=== PATIENT | female | born 1945 | race African-American/Black ===

== ENCOUNTER 2019-04-12 13:42 | Inpatient (IN) | payer MEDICAID, MEDICARE, OTHER ==
[~2019-04-12] VITALS: Ht 162.6 cm; Wt 100.7 kg
[~2019-04-12 13:42] MED LIST: DOCUSATE SODIU100 MG PO; FERROUS SULFAT325 MG ORAL; FISH OIL CAP1000 MG PO; FLAXSEED OIL1000 M2 PO; HYDROCHLOROTH12.5 MG ORAL; LIPITOR80 MG ORAL; LISINOPRIL10 MG ORAL; NITROSTAT0.4 M1 SL; PLAVIX75 MG ORAL; TENORMIN50 MG ORAL; ULTRACET1 EA ORAL; ZYLOPRIM300 MG ORAL
--- NOTE | 2019-04-12 14:15 | Emergency Room Report ---
History of Present Illness General Chief Complaint: Abdominal Pain Source: Patient Present Illness HPI 73-year-old female presents ED for evaluation. Patient complaining of lower abdominal discomfort for the last 3 days. Describes burning urination. Pain is 5 out of 10, dull, nonradiating. Denies fevers or chills. Denies nausea or vomiting. Denies chest pain or shortness of breath. Denies flank pain. No other aggravating relieving factors. Denies any other associated symptoms Allergies: Coded Allergies: Cultivated Oat Pollen (Verified Allergy, Mild, 03/01/13) IODINE (Verified Allergy, Mild, 03/01/13) Patient History Past Medical History: DM, HTN Past Surgical History: none Pertinent Family History: none Social History: Denies: smoking, alcohol use, drug use Now: No Immunizations: UTD Reviewed Nursing Documentation: PMH: Agreed; PSxH: Agreed Nursing Documentation-PMH Hx Cardiac Problems: Yes Hx Hypertension: Yes Hx Diabetes: Yes - states that blood sugar is within borderline Hx Cancer: No Hx Gastrointestinal Problems: No Hx Neurological Problems: No Review of Systems All Other Systems: negative except mentioned in HPI Physical Exam Vital Signs Date Time Temp Pulse Resp B/P (MAP) Pulse Ox O2 Delivery O2 Flow Rate FiO2 04/12/19 13:48 100.4 73 19 172/82 (112) 96 Room Air Sp02 EP Interpretation: reviewed, normal General Appearance: no apparent distress, alert, GCS 15, non-toxic Head: normocephalic, atraumatic Eyes: bilateral eye normal inspection, bilateral eye PERRL ENT: hearing grossly normal, normal pharynx, no angioedema, normal voice Neck: full range of motion, supple/symm/no masses Respiratory: chest non-tender, lungs clear, normal breath sounds, speaking full sentences Cardiovascular #1: regular rate, rhythm, no edema Cardiovascular #2: 2+ carotid (R), 2+ carotid (L), 2+ radial (R), 2+ radial (L) , 2+ dorsalis pedis (R), 2+ dorsalis pedis (L) Gastrointestinal: normal bowel sounds, non tender, soft, non-distended, no guarding, no rebound Rectal: deferred Genitourinary: normal inspection, no CVA tenderness Musculoskeletal: back normal, gait/station normal, normal range of motion, non- tender Neurologic: alert, oriented x3, responsive, motor strength/tone normal, sensory intact, speech normal Psychiatric: judgement/insight normal, memory normal, mood/affect normal, no suicidal/homicidal ideation Reflexes: 3+ bicep (R), 3+ bicep (L), 3+ tricep (R), 3+ tricep (L), 3+ knee (R) , 3+ knee (L) Skin: normal color, no rash, warm/dry, well hydrated Lymphatic: no adenopathy Medical Decision Making Diagnostic Impression: Primary Impression: Diverticulitis ER Course Hospital Course 73-year-old female presents to ED with lower abdominal pain Differential diagnoses include: appendicitis, diverticulitis, SBO, gastroenteritis Clinical course Patient placed on stretcher. [employer]. After initial history and physical I ordered labs, IV fluids, UA, pain medication and CT scan Labs - no leukocytosis, Hb/Hct stable. electrolytes ok. UA CT abdomen and pelvis - diverticulitis Patient continues to have pain. given age, comorbidities, fever i believe patient would benefit from admission Antibiotics given. Case discussed with Dr Payne and he agreed to accept the patient to his service for further care and support I feel this is a highly complex case requiring extensive working including EKG/ Rhythm strip, Xray/CT/US, Blood/urine lab work, repeat exams while in ED, and administration of strong opiates/narcotics for pain control, admission to hospital or close patient follow up. Diagnosis - divertculitis Patient admitted to floor in serious condition Labs Test 04/12/19 14:15 White Blood Count 9.1 K/UL (4.8-10.8) Red Blood Count 4.30 M/UL (4.20-5.40) Hemoglobin 12.1 G/DL (12.0-16.0) Hematocrit 38.7 % (37.0-47.0) Mean Corpuscular Volume 90 FL (80-99) Mean Corpuscular Hemoglobin 28.0 PG (27.0-31.0) Mean Corpuscular Hemoglobin Concent 31.1 G/DL (32.0-36.0) Red Cell Distribution Width 13.3 % (11.6-14.8) Platelet Count 340 K/UL (150-450) Mean Platelet Volume 6.9 FL (6.5-10.1) Neutrophils (%) (Auto) 74.0 % (45.0-75.0) Lymphocytes (%) (Auto) 17.6 % (20.0-45.0) Monocytes (%) (Auto) 5.0 % (1.0-10.0) Eosinophils (%) (Auto) 2.4 % (0.0-3.0) Basophils (%) (Auto) 1.1 % (0.0-2.0) Urine Color Pale yellow Urine Appearance Clear Urine pH 6 (4.5-8.0) Urine Specific [place] 1.015 (1.005-1.035) Urine Protein 1+ (NEGATIVE) Urine Glucose (UA) Negative (NEGATIVE) Urine Ketones Negative (NEGATIVE) Urine Blood Negative (NEGATIVE) Urine Nitrite Negative (NEGATIVE) Urine Bilirubin Negative (NEGATIVE) Urine Urobilinogen Normal MG/DL (0.0-1.0) Urine Leukocyte Esterase 2+ (NEGATIVE) Urine RBC 0 /HPF (0 - 2) Urine WBC 2-4 /HPF (0 - 2) Urine Squamous Epithelial Cells Few /LPF (NONE/OCC) Urine Bacteria Few /HPF (NONE) Sodium Level 140 MMOL/L (136-145) Potassium Level 3.9 MMOL/L (3.5-5.1) Chloride Level 102 MMOL/L (98-107) Carbon Dioxide Level 29 MMOL/L (21-32) Anion Gap 9 mmol/L (5-15) Blood Urea Nitrogen 16 mg/dL (7-18) Creatinine 1.4 MG/DL (0.55-1.30) Estimat Glomerular Filtration Rate mL/min (>60) Glucose Level 112 MG/DL (74-106) Calcium Level 9.3 MG/DL (8.5-10.1) Total Bilirubin 0.5 MG/DL (0.2-1.0) Aspartate Amino Transf (AST/SGOT) 28 U/L (15-37) Alanine Aminotransferase (ALT/SGPT) 19 U/L (12-78) Alkaline Phosphatase 106 U/L (46-116) Total Protein 7.4 G/DL (6.4-8.2) Albumin 3.7 G/DL (3.4-5.0) Globulin 3.7 g/dL Albumin/Globulin Ratio 1.0 (1.0-2.7) Lipase 546 U/L (73-393) CT/MRI/US Diagnostic Results CT/MRI/US Diagnostic Results : Imaging Test Ordered: CT A/P Impression Acute diverticulitis involving the sigmoid: In the left lower quadrant abdomen. No abscess. Uterine fibroids. Atrophic right kidney likely nonfunctional. Small umbilical hernia containing fat Atherosclerotic vascular disease. Suggestion of a small left renal cyst. Posterior basilar scarring of the lungs with bronchiectasis. Last Vital Signs Date Time Temp Pulse Resp B/P (MAP) Pulse Ox O2 Delivery O2 Flow Rate FiO2 04/12/19 13:48 100.4 73 19 172/82 (112) 96 Room Air Status: improved Disposition: ADMITTED INPATIENT Condition: Serious Ilya Ramirez MD Apr 12, 2019 14:15
--- NOTE | 2019-04-12 14:15 | NUR ---
ED Nurse Note: pt able to give urine sample and bloood drawn and was sent to lab. ivf started.
[2019-04-12 14:20] VITALS: BP 172/82
--- NOTE | 2019-04-12 14:20 | NUR ---
ED Nurse Note: pt walked in due to lower abdominal pain. st claims that it is burning pain, pt denies putting anything on the abdomen. bp is 160/121 and stated she didnt took the bp meds because she has not been eaten for 3 days and has no bm for 3 days. pt denies vomiting. pt seen by uli. will continue to monitor.
[2019-04-12 14:40] LABS: APPEARANCE,URINE CLEAR; BASOPHILS % (AUTO) 1.1 % (0.0-2.0); BILIRUBIN, URINE NEGATIVE (NEGATIVE); COLOR,URINE PALE YELLOW; EOSINOPHILS % (AUTO) 2.4 % (0.0-3.0); GLUCOSE, URINE (UA) NEGATIVE (NEGATIVE); HEMATOCRIT 38.7 % (37.0-47.0); HEMOGLOBIN 12.1 G/DL (12.0-16.0); KETONES,URINE NEGATIVE (NEGATIVE); LEUKOCYTE ESTERASE ,URINE 2+ (NEGATIVE); LYMPHOCYTES % (AUTO) 17.6 % (20.0-45.0); MEAN CORPUSCULAR VOLUME 90 FL (80-99); NITRITE,URINE NEGATIVE (NEGATIVE); PH,URINE 6 (4.5-8.0); PLATELET COUNT 340 K/UL (150-450); PROTEIN,URINE 1+ (NEGATIVE); RED CELL DISTRIBUTION WIDTH 13.3 % (11.6-14.8); UROBILINOGEN,URINE NORMAL MG/DL (0.0-1.0); WHITE BLOOD COUNT 9.1 K/UL (4.8-10.8)
[2019-04-12 14:52] LABS: ANION GAP 9 mmol/L (5-15); BLOOD UREA NITROGEN 16 mg/dL (7-18); CALCIUM 9.3 MG/DL (8.5-10.1); CARBON DIOXIDE 29 MMOL/L (21-32); CHLORIDE 102 MMOL/L (98-107); CREATININE 1.4 MG/DL (0.55-1.30); POTASSIUM 3.9 MMOL/L (3.5-5.1); SODIUM 140 MMOL/L (136-145)
[2019-04-12 14:56] LABS: ALANINE AMINOTRANSFERASE 19 U/L (12-78); ALBUMIN 3.7 G/DL (3.4-5.0); ALKALINE PHOSPHATASE 106 U/L (46-116); ASPARTATE AMINO TRANSFERASE 28 U/L (15-37); BILIRUBIN,TOTAL 0.5 MG/DL (0.2-1.0)
--- NOTE | 2019-04-12 15:20 | NUR ---
ED Nurse Note: ermd on bedside talking with pt regarding the plan of care.
[2019-04-12] MEDS ORDERED: Isovue-300 100ml vial INJ PRN (15:30)
[2019-04-12] MEDS ORDERED: Morphine Sulfate 2mg/ml Inj(IV/IM USE ONLY) IVP ONE (15:30)
--- NOTE | 2019-04-12 15:30 | NUR ---
ED Nurse Note: pt medicated and tolerated and tolerated well. pt stated that the pain got better.
--- NOTE | 2019-04-12 15:30 | NUR ---
ED Nurse Note: pt went to ct with tech
--- NOTE | 2019-04-12 15:45 | NUR ---
ED Nurse Note: pt went back from ct with tech
--- NOTE | 2019-04-12 15:45 | NUR ---
Concepcion ortiz in EDM - 04/12/19 at 1614 by NOEL ED Nurse Note: pt went back from dialysis
--- NOTE | 2019-04-12 16:52 | Diagnostic Imaging Report ---
Indication: Abdominal pain Technique: Continuous helical transaxial imaging of the abdomen and pelvis was obtained from the lung bases to the pubic symphysis during intravenous contrast administration. Coronal 2-D reformats were also obtained. Study obtained in a Siemens sensation [address] Automatic Exposure Control was utilized. Total Dose length Product (DLP): 988.[address] Dose Index Volume (CTDIvol): 19.51 mGy Comparison: None Findings: The lung bases demonstrate mild bronchiectasis. This is associated with some peribronchial densities that likely represent scarring. The liver and spleen and gallbladder are unremarkable. The right kidney is atrophic and the left kidney enhances normally. There is no hydronephrosis. There is suggestion of a cyst in the left kidney. Moderate aortoiliac calcifications are present. The appendix is normal. Small umbilical hernia containing fat demonstrated. In the left lower quadrant abdomen there is some perisigmoid soft tissue stranding with the multiple diverticula noted. Findings consistent with acute diverticulitis. There is no abscess identified. Bowel gas pattern is nonobstructive. Calcifications and lobulation of the uterus noted consistent with fibroids. Urinary bladder is unremarkable. IMPRESSION: Acute diverticulitis involving the sigmoid: In the left lower quadrant abdomen. No abscess. Uterine fibroids. Atrophic right kidney likely nonfunctional. Small umbilical hernia containing fat Atherosclerotic vascular disease. Suggestion of a small left renal cyst. Posterior basilar scarring of the lungs with bronchiectasis. The CT scanner at [facility] is accredited by the [employer] and the scans are performed using dose optimization techniques as appropriate to a performed exam including Automatic Exposure control.
--- NOTE | 2019-04-12 17:30 | NUR ---
ED Nurse Note: uli on bedside talking with the pt regarding admission agrees witht he admission and prefers to be admitted.
[2019-04-12 17:51] VITALS: BP 150/64
[2019-04-12 19:05] VITALS: BP 126/65
--- NOTE | 2019-04-12 19:05 | NUR ---
ED Nurse Note: Report received from SARAH Hua. Pt to be admitted for diverticulitis. VSS. Pt showing no signs of acute distress. Currently awaiting bed placement. No complaint of pain at the moment. Will continue to monitor.
--- NOTE | 2019-04-12 20:07 | NUR ---
ED Nurse Note: Report given to SARAH Latif. Pt A/Ox4, VSS. Showing no signs of acute distress. All belongings with patient. Belongings list signed.
--- NOTE | 2019-04-12 20:21 | NUR ---
ED Nurse Note: Pt transferred to floor by book sorter. All belongings taken with pt. VSS. Pt showing no signs of acute distress.
[2019-04-12] MEDS ORDERED: TYLENOL WITH C1 EAC1 ORAL (21:02)
[2019-04-12] MEDS ORDERED: ISOSORBIDE MONO60 M1 PO (21:02)
[2019-04-12] MEDS ORDERED: METFORMIN HCL500 M1 ORAL (21:04)
--- NOTE | 2019-04-12 21:30 | NUR ---
NURSE NOTES: Received patient from ED. Patient AAO x 4, on room air, c/o low abd pain 7/10. IV L AC 20G intact and patent. Vital sings 97.4F, 97% O2, 77HR, 18RR. No acute distress noted at this time. All belongings lists checked. RN asked patient's wallet to keep in hospital's safe but refused. RN informed patient that hospital shall not be liable for the loss to any valuables and patient understood. Patient home meds sent to the pharmacy and reviewed. Bed locked, lowest position, alarm on, side rails up x 2. Will continue to monitor.
[2019-04-12] MEDS ORDERED: Miralax 17gm pkt ORAL PRN (22:15)
[2019-04-12] MEDS ORDERED: Nitroglycerin Subl 0.4mg tab SL PRN (22:15)
[2019-04-12] MEDS ORDERED: Piperacillin/Tazobactam 3.375 GM in NS 110 ML IVPB SCH (22:30)
[2019-04-12] MEDS: Morphine Sulfate 2mg/ml Inj(IV/IM USE ONLY) IVP PRN (22:31)
[2019-04-13] VITALS: BP 104/60
[2019-04-13 04:00] VITALS: BP 105/43
[2019-04-13] MEDS: NovoLOG Insulin Flexpen SUBQ SCH ×4 (06:30→21:00)
[2019-04-13 06:38] LABS: BASOPHILS % (AUTO) 1.1 % (0.0-2.0); EOSINOPHILS % (AUTO) 4.2 % (0.0-3.0); HEMATOCRIT 33.6 % (37.0-47.0); HEMOGLOBIN 10.5 G/DL (12.0-16.0); LYMPHOCYTES % (AUTO) 23.3 % (20.0-45.0); MEAN CORPUSCULAR VOLUME 89 FL (80-99); MONOCYTES % (AUTO) 10.2 % (1.0-10.0); NEUTROPHILS % (AUTO) 61.2 % (45.0-75.0); PLATELET COUNT 281 K/UL (150-450); RED BLOOD COUNT 3.76 M/UL (4.20-5.40); RED CELL DISTRIBUTION WIDTH 13.5 % (11.6-14.8); WHITE BLOOD COUNT 6.6 K/UL (4.8-10.8)
[2019-04-13 06:39] LABS: ALANINE AMINOTRANSFERASE 19 U/L (12-78); ALBUMIN 2.9 G/DL (3.4-5.0); ALBUMIN/GLOBULIN RATIO 0.8 (1.0-2.7); ALKALINE PHOSPHATASE 86 U/L (46-116); AMYLASE 102 U/L (25-115); ANION GAP 9 mmol/L (5-15); ASPARTATE AMINO TRANSFERASE 25 U/L (15-37); BILIRUBIN,TOTAL 0.6 MG/DL (0.2-1.0); BLOOD UREA NITROGEN 16 mg/dL (7-18); CARBON DIOXIDE 28 MMOL/L (21-32); CHLORIDE 107 MMOL/L (98-107); CREATININE 1.4 MG/DL (0.55-1.30); POTASSIUM 3.8 MMOL/L (3.5-5.1); SODIUM 144 MMOL/L (136-145)
--- NOTE | 2019-04-13 07:00 | NUR ---
HAND-OFF: Report given to SARAH Bojorquez.
--- NOTE | 2019-04-13 07:47 | NUR ---
NURSE NOTES: Received report from SARAH Renteria. Pt in bed, awake, talkative, NPO per order allowed to have ice chips, discussed plan of care and pending exams for today, pt has pain in right lower quadrant, discussed next does of pain medication, no apparent respiratory distress. Bed in lowest position, call light within reach.
[2019-04-13 08:00] VITALS: BP 113/69
[2019-04-13] MEDS: Morphine Sulfate 2mg/ml Inj(IV/IM USE ONLY) IVP PRN (08:54)
[2019-04-13] MEDS: Heparin 5000 units/ml inj SUBQ SCH ×2 (08:55→21:00)
[2019-04-13] MEDS ORDERED: Piperacillin/Tazobactam 3.375 GM in NS 110 ML IVPB SCH (09:00)
--- NOTE | 2019-04-13 11:32 | General Progress Note ---
Assessment/Plan Problem List: (1) Diverticulitis ICD Codes: K57.92 - Diverticulitis of intestine, part unspecified, without perforation or abscess without bleeding SNOMED: [id number] Assessment/Plan: abx pain control start clears needs out patient colonoscopy in 8 weeks Subjective ROS Limited/Unobtainable: Yes Allergies: Coded Allergies: Cultivated Oat Pollen (Verified Allergy, Mild, 03/01/13) IODINE (Verified Allergy, Mild, 03/01/13) Objective Last 24 Hour Vital Signs Date Time Temp Pulse Resp B/P (MAP) Pulse Ox O2 Delivery O2 Flow Rate FiO2 04/13/19 09:24 97.7 04/13/19 09:00 Room Air 04/13/19 08:53 60 113/69 04/13/19 08:00 97.7 60 12 113/69 (84) 96 04/13/19 04:00 97.2 64 14 105/43 (63) 95 04/13/19 00:00 98.4 64 14 104/60 (75) 95 04/12/19 21:08 Room Air 04/12/19 20:20 99.4 70 16 126/70 99 Room Air 04/12/19 19:05 99.7 77 18 126/65 97 Room Air 04/12/19 17:51 82 20 150/64 100 Room Air 04/12/19 14:20 73 19 Room Air 04/12/19 14:20 100.4 73 19 172/82 96 Room Air 04/12/19 13:48 100.4 73 19 172/82 (112) 96 Room Air Intake and Output 04/12/19 04/13/19 19:00 07:00 Intake Total 635 ml Balance 635 ml Intake Oral 0 ml IV Total 635 ml Laboratory Tests 04/12/19 14:15: White Blood Count 9.1, Red Blood Count 4.30, Hemoglobin 12.1, Hematocrit 38.7, Mean Corpuscular Volume 90, Mean Corpuscular Hemoglobin 28.0, Mean Corpuscular Hemoglobin Concent 31.1L, Red Cell Distribution Width 13.3, Platelet Count 340, Mean Platelet Volume 6.9, Neutrophils (%) (Auto) 74.0, Lymphocytes (%) (Auto) 17.6L, Monocytes (%) (Auto) 5.0, Eosinophils (%) (Auto) 2.4, Basophils (%) (Auto ) 1.1, Urine Color Pale yellow, Urine Appearance Clear, Urine pH 6, Urine Specific [place] 1.015, Urine Protein 1+H, Urine Glucose (UA) Negative, Urine Ketones Negative, Urine Blood Negative, Urine Nitrite Negative, Urine Bilirubin Negative, Urine Urobilinogen Normal, Urine Leukocyte Esterase 2+H, Urine RBC 0, Urine WBC 2-4, Urine Squamous Epithelial Cells Few, Urine Bacteria Few, Sodium Level 140, Potassium Level 3.9, Chloride Level 102, Carbon Dioxide Level 29, Anion Gap 9, Blood Urea Nitrogen 16, Creatinine 1.4H, Estimat Glomerular Filtration Rate , Glucose Level 112H, Calcium Level 9.3, Total Bilirubin 0.5, Aspartate Amino Transf (AST/SGOT) 28, Alanine Aminotransferase (ALT/SGPT) 19, Alkaline Phosphatase 106, Total Protein 7.4, Albumin 3.7, Globulin 3.7, Albumin/ Globulin Ratio 1.0, Lipase 546H 04/13/19 04:45: White Blood Count 6.6, Red Blood Count 3.76L, Hemoglobin 10.5L, Hematocrit 33.6L , Mean Corpuscular Volume 89, Mean Corpuscular Hemoglobin 27.9, Mean Corpuscular Hemoglobin Concent 31.2L, Red Cell Distribution Width 13.5, Platelet Count 281, Mean Platelet Volume 6.8, Neutrophils (%) (Auto) 61.2, Lymphocytes (%) (Auto) 23.3, Monocytes (%) (Auto) 10.2H, Eosinophils (%) (Auto) 4.2H, Basophils (%) (Auto) 1.1, Sodium Level 144, Potassium Level 3.8, Chloride Level 107, Carbon Dioxide Level 28, Anion Gap 9, Blood Urea Nitrogen 16, Creatinine 1.4H, Estimat Glomerular Filtration Rate , Glucose Level 107H, Calcium Level 9.0, Total Bilirubin 0.6, Aspartate Amino Transf (AST/SGOT) 25, Alanine Aminotransferase (ALT/SGPT) 19, Alkaline Phosphatase 86, Total Protein 6.4, Albumin 2.9L, Globulin 3.5, Albumin/Globulin Ratio 0.8L, Lipase 235, Prothrombin Time 10.6, Prothromb Time International Ratio 1.0, Activated Partial Thromboplast Time 30, Hemoglobin A1c 7.0H, Amylase Level 102, Thyroid Stimulating Hormone (TSH) 1.566 Height (Feet): 5 Height (Inches): 4.00 Weight (Pounds): 223 General Appearance: alert EENT: normal ENT inspection Neck: supple Cardiovascular: normal rate Respiratory/Chest: lungs clear Abdomen: normal bowel sounds, soft, tender Extremities: non-tender Cachorro Dunlap MD Apr 13, 2019 11:32
--- NOTE | 2019-04-13 11:49 | NUR ---
*-* NO ISNURANCE INFORMATION IN THE BAR UNABLE TO SEND CLINICALS *-*
[2019-04-13 12:00] VITALS: BP 127/79
--- NOTE | 2019-04-13 12:07 | Diagnostic Imaging Report ---
Indication: Abdominal pain Technique: Grayscale and duplex Doppler imaging of the abdomen performed. Comparison: None Findings: The liver is unremarkable. Doppler interrogation of the main portal vein shows patency with hepatopedal, monophasic flow. There is no biliary ductal dilatation identified. The CBD measures 5 mm. The spleen is unremarkable. Gallbladder is unremarkable. No gallstones or wall thickening identified. Sonographic Gray's sign was negative per technologist. There demonstrated part of the pancreas, aorta and IVC show no definite abnormalities. The right kidney is atrophic. There are cysts within the left kidney of varying size. There is no hydronephrosis. IMPRESSION: No acute findings identified. Left renal cysts Atrophic right kidney Please refer to the CT abdomen and pelvis report
--- NOTE | 2019-04-13 13:25 | Consultation ---
History of Present Illness General Date patient seen: Apr 13, 2019 Reason for Hospitalization: Abdominal Pain Present Illness HPI 73 year old female presented with Lower abdominal pain for 3 days. no n/v/f/c. pain 5/10 cramping lower abdominal without radiation. in ED had CT with acute diverticulitis. surgery called to evaluate. patient seen, chart reviewed, patient examined. 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 Allergies: Coded Allergies: Cultivated Oat Pollen (Verified Allergy, Mild, 03/01/13) IODINE (Verified Allergy, Mild, 03/01/13) Medication History Scheduled Allopurinol* (Zyloprim*), 300 MG ORAL DAILY, (Reported) Atenolol* (Tenormin*), 25 MG ORAL Q12HR, (Reported) Atorvastatin (Lipitor), 80 MG ORAL BEDTIME, (Reported) Clopidogrel Bisulfate* (Plavix*), 75 MG ORAL DAILY, (Reported) Isosorbide Mononitrate (Isosorbide Mononitrate Er), 60 MG PO DAILY, (Reported) Metformin Hcl* (Metformin Hcl*), 500 MG ORAL TWICE A DAY, (Reported) Nitroglycerin (Nitrostat), 0.4 MG SL PRN, (Reported) Scheduled PRN Acetaminophen/Codeine (T#4) (Tylenol With Codeine #4 Tablet*), 1 TAB ORAL Q6H PRN for For Pain, (Reported) Docusate Sodium* (Docusate Sodium*), 100 MG PO DAILY PRN for Constipation, ( Reported) Discontinued Medications Ferrous Sulfate* (Ferrous Sulfate*), 325 MG ORAL TID, (Reported) Discontinued Reason: Pt stopped taking med Fish Oil (Fish Oil 1,000 mg Capsule), 2,000 MG PO TID, (Reported) Discontinued Reason: Pt stopped taking med Flaxseed (Flaxseed Oil), 1,000 MG PO TID, (Reported) Discontinued Reason: Pt stopped taking med Hydrochlorothiazide* (Hydrochlorothiazide*), 12.5 MG ORAL DAILY, (Reported) Discontinued Reason: MD discontinued med Lisinopril* (Lisinopril*), 10 MG ORAL DAILY, (Reported) Discontinued Reason: discontinued med Tramadol/Acetaminophen (Ultracet Tablet), 1-2 EA ORAL BID-PRN, (Reported) Discontinued Reason: MD discontinued med Patient History History Provided By: Patient, Medical Record, PMD Healthcare decision maker Resuscitation status Full Code Advanced Directive on File Past Medical/Surgical History Past Medical/Surgical History: (1) UTI (urinary tract infection) (2) Diverticulitis Review of Systems Review of Symptoms General ROS: no weight loss or fever Psychological ROS: no depression or mood changes, no memory loss Ophthalmic ROS: no visual changes or eye irritation ENT ROS: no nasal congestion, hearing loss, dizziness Allergy and Immunology ROS: no allergic symptoms or urticaria Hematological and Lymphatic ROS: no swollen glands, unusual bleeding or bruising Endocrine ROS: no polyuria, polydipsia, weight changes, temperature intolerance Respiratory ROS: no cough, shortness of breath, or wheezing Cardiovascular ROS: no chest pain or dyspnea on exertion Gastrointestinal ROS: denies abdominal pain, no bright red blood in stool. Musculoskeletal ROS: no myalgias or arthralgias Neurological ROS: no TIA or stroke symptoms Dermatological ROS: no new or changing skin lesions, rashes or pruritis Physical Exam Physical Exam General appearance: alert, cooperative, no distress, appears stated age Head: Normocephalic, without obvious abnormality, atraumatic Eyes: conjunctivae/corneas clear. PERRL, EOM's intact. Fundi benign Throat: Lips, mucosa, and tongue normal. Teeth and gums normal Neck: supple, symmetrical, trachea midline, no adenopathy, thyroid: not enlarged, symmetric, no tenderness/mass/nodules, no carotid bruit and no JVD Lungs: clear to auscultation bilaterally Heart: regular rate and rhythm, S1, S2 normal, no murmur, click, rub or gallop Abdomen: soft, non-tender. Bowel sounds normal. No masses, no organomegaly Extremities: extremities normal, atraumatic, no cyanosis or edema Pulses: 2+ and symmetric Skin: Skin color, texture, turgor normal. No rashes or lesions Neurologic: Grossly normal Last 24 Hour Vital Signs Date Time Temp Pulse Resp B/P (MAP) Pulse Ox O2 Delivery O2 Flow Rate FiO2 04/13/19 12:00 97.9 68 17 127/79 (95) 94 04/13/19 09:24 97.7 04/13/19 09:00 Room Air 04/13/19 08:53 60 113/69 04/13/19 08:00 97.7 60 12 113/69 (84) 96 6/25/19 04:00 97.2 64 14 105/43 (63) 95 04/13/19 00:00 98.4 64 14 104/60 (75) 95 04/12/19 21:08 Room Air 04/12/19 20:20 99.4 70 16 126/70 99 Room Air 04/12/19 19:05 99.7 77 18 126/65 97 Room Air 04/12/19 17:51 82 20 150/64 100 Room Air 04/12/19 14:20 73 19 Room Air 04/12/19 14:20 100.4 73 19 172/82 96 Room Air 04/12/19 13:48 100.4 73 19 172/82 (112) 96 Room Air Intake and Output 04/12/19 04/13/19 19:00 07:00 Intake Total 635 ml Balance 635 ml Intake Oral 0 ml IV Total 635 ml Laboratory Tests Test 04/12/19 14:15 04/13/19 04:45 White Blood Count 9.1 K/UL (4.8-10.8) 6.6 K/UL (4.8-10.8) Red Blood Count 4.30 M/UL (4.20-5.40) 3.76 M/UL (4.20-5.40) L Hemoglobin 12.1 G/DL (12.0-16.0) 10.5 G/DL (12.0-16.0) L Hematocrit 38.7 % (37.0-47.0) 33.6 % (37.0-47.0) L Mean Corpuscular Volume 90 FL (80-99) 89 FL (80-99) Mean Corpuscular Hemoglobin 28.0 PG (27.0-31.0) 27.9 PG (27.0-31.0) Mean Corpuscular Hemoglobin Concent 31.1 G/DL (32.0-36.0) L 31.2 G/DL (32.0-36.0) L Red Cell Distribution Width 13.3 % (11.6-14.8) 13.5 % (11.6-14.8) Platelet Count 340 K/UL (150-450) 281 K/UL (150-450) Mean Platelet Volume 6.9 FL (6.5-10.1) 6.8 FL (6.5-10.1) Neutrophils (%) (Auto) 74.0 % (45.0-75.0) 61.2 % (45.0-75.0) Lymphocytes (%) (Auto) 17.6 % (20.0-45.0) L 23.3 % (20.0-45.0) Monocytes (%) (Auto) 5.0 % (1.0-10.0) 10.2 % (1.0-10.0) H Eosinophils (%) (Auto) 2.4 % (0.0-3.0) 4.2 % (0.0-3.0) H Basophils (%) (Auto) 1.1 % (0.0-2.0) 1.1 % (0.0-2.0) Urine Color Pale yellow Urine Appearance Clear Urine pH 6 (4.5-8.0) Urine Specific [place] 1.015 (1.005-1.035) Urine Protein 1+ (NEGATIVE) H Urine Glucose (UA) Negative (NEGATIVE) Urine Ketones Negative (NEGATIVE) Urine Blood Negative (NEGATIVE) Urine Nitrite Negative (NEGATIVE) Urine Bilirubin Negative (NEGATIVE) Urine Urobilinogen Normal MG/DL (0.0-1.0) Urine Leukocyte Esterase 2+ (NEGATIVE) H Urine RBC 0 /HPF (0 - 2) Urine WBC 2-4 /HPF (0 - 2) Urine Squamous Epithelial Cells Few /LPF (NONE/OCC) Urine Bacteria Few /HPF (NONE) Sodium Level 140 MMOL/L (136-145) 144 MMOL/L (136-145) Potassium Level 3.9 MMOL/L (3.5-5.1) 3.8 MMOL/L (3.5-5.1) Chloride Level 102 MMOL/L (98-107) 107 MMOL/L (98-107) Carbon Dioxide Level 29 MMOL/L (21-32) 28 MMOL/L (21-32) Anion Gap 9 mmol/L (5-15) 9 mmol/L (5-15) Blood Urea Nitrogen 16 mg/dL (7-18) 16 mg/dL (7-18) Creatinine 1.4 MG/DL (0.55-1.30) H 1.4 MG/DL (0.55-1.30) H Estimat Glomerular Filtration Rate mL/min (>60) mL/min (>60) Glucose Level 112 MG/DL (74-106) H 107 MG/DL (74-106) H Calcium Level 9.3 MG/DL (8.5-10.1) 9.0 MG/DL (8.5-10.1) Total Bilirubin 0.5 MG/DL (0.2-1.0) 0.6 MG/DL (0.2-1.0) Aspartate Amino Transf (AST/SGOT) 28 U/L (15-37) 25 U/L (15-37) Alanine Aminotransferase (ALT/SGPT) 19 U/L (12-78) 19 U/L (12-78) Alkaline Phosphatase 106 U/L (46-116) 86 U/L (46-116) Total Protein 7.4 G/DL (6.4-8.2) 6.4 G/DL (6.4-8.2) Albumin 3.7 G/DL (3.4-5.0) 2.9 G/DL (3.4-5.0) L Globulin 3.7 g/dL 3.5 g/dL Albumin/Globulin Ratio 1.0 (1.0-2.7) 0.8 (1.0-2.7) L Lipase 546 U/L (73-393) H 235 U/L (73-393) Prothrombin Time 10.6 SEC (9.30-11.50) Prothromb Time International Ratio 1.0 (0.9-1.1) Activated Partial Thromboplast Time 30 SEC (23-33) Hemoglobin A1c 7.0 % (4.3-6.0) H Amylase Level 102 U/L (25-115) Thyroid Stimulating Hormone (TSH) 1.566 uiU/mL (0.358-3.740) Height (Feet): 5 Height (Inches): 4.00 Weight (Pounds): 223 Medications Current Medications Medications (Trade) Dose Ordered Sig/Cecilio Route PRN Reason Start Time Stop Time Status Last Admin Dose Admin Acetaminophen (Tylenol) 650 mg Q4H PRN ORAL fever 04/12/19 22:15 05/12/19 22:14 Allopurinol (Allopurinol) 300 mg DAILY ORAL 04/13/19 09:00 05/13/19 08:59 04/13/19 08:52 Atenolol (Tenormin) 25 mg Q12HR ORAL 04/13/19 09:00 05/13/19 08:59 04/13/19 08:53 Clopidogrel Bisulfate (Plavix) 75 mg DAILY ORAL 04/13/19 09:00 05/13/19 08:59 04/13/19 08:52 Dextrose (Dextrose 50%) 25 ml Q30M PRN IV Hypoglycemia 04/12/19 22:15 05/12/19 22:14 Diphenhydramine HCl (Benadryl) 25 mg Q6H PRN ORAL Itching/Pruritis 04/12/19 22:15 05/12/19 22:14 Heparin Sodium (Porcine) (Heparin 5000 units/ml) 5,000 units EVERY 12 HOURS SUBQ 04/13/19 09:00 05/13/19 08:59 Insulin Aspart (NovoLOG) BEFORE MEALS AND HS SUBQ 04/13/19 06:30 05/13/19 06:29 Morphine Sulfate (Morphine Sulfate) 2 mg Q4H PRN IVP severe Pain (Pain Scale 7-10) 04/12/19 22:15 04/19/19 22:14 04/13/19 08:54 Nitroglycerin (Ntg) 0.4 mg Q5M X 3 DOSES PRN SL Prn Chest Pain 04/12/19 22:15 05/12/19 22:14 Ondansetron HCl (Zofran) 4 mg Q6H PRN IVP Nausea & Vomiting 04/12/19 22:15 05/12/19 22:14 Piperacillin Sod/ Tazobactam Sod 3.375 gm/Sodium Chloride 110 ml @ 220 mls/hr Q8H IVPB 04/13/19 09:00 04/20/19 08:59 04/13/19 08:56 Polyethylene Glycol (Miralax) 17 gm HSPRN PRN ORAL Constipation 04/12/19 22:15 05/12/19 22:14 Sodium Chloride 1,000 ml @ 50 mls/hr Q20H IV 04/12/19 22:05 05/12/19 22:04 04/12/19 23:12 Temazepam (Restoril) 15 mg HSPRN PRN ORAL Insomnia 04/12/19 22:15 04/19/19 22:14 Assessment/Plan Problem List: (1) Keloid scar of skin Assessment & Plan: 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 CT with acute diverticulitis. afebrile, HD stable, labs okay Acute diverticulitis involving the sigmoid: In the left lower quadrant abdomen. No abscess. Uterine fibroids. Atrophic right kidney likely nonfunctional. Small umbilical hernia containing fat Atherosclerotic vascular disease. Suggestion of a small left renal cyst. Posterior basilar scarring of the lungs with bronchiectasis. exam benign today start clear liquids cont abx will follow with exams. thank you ICD Codes: K57.92 - Diverticulitis of intestine, part unspecified, without perforation or abscess without bleeding SNOMED: 169336516 (3) UTI (urinary tract infection) ICD Codes: N39.0 - Urinary tract infection, site not specified SNOMED: 40380326 Shawn Zuniga Apr 13, 2019 13:25
--- NOTE | 2019-04-13 13:38 | Consultation ---
History of Present Illness General Chief Complaint: Abdominal Pain Present Illness HPI 73-year-old female with hx of DM, HTN, presented to ED for evaluation of lower abdominal discomfort for the last 3 days. Describes burning urination. Pain is 5 out of 10, dull, nonradiating. Denies fevers or chills. Denies nausea or vomiting. Denies chest pain or shortness of breath. She had a CT of abdomen in ER showing acute diverticulitis and is admitted for further treatment. CT also showed a right atrophic kidney. Allergies: Coded Allergies: Cultivated Oat Pollen (Verified Allergy, Mild, 03/01/13) IODINE (Verified Allergy, Mild, 03/01/13) Medication History Scheduled Allopurinol* (Zyloprim*), 300 MG ORAL DAILY, (Reported) Atenolol* (Tenormin*), 25 MG ORAL Q12HR, (Reported) Atorvastatin (Lipitor), 80 MG ORAL BEDTIME, (Reported) Clopidogrel Bisulfate* (Plavix*), 75 MG ORAL DAILY, (Reported) Isosorbide Mononitrate (Isosorbide Mononitrate Er), 60 MG PO DAILY, (Reported) Metformin Hcl* (Metformin Hcl*), 500 MG ORAL TWICE A DAY, (Reported) Nitroglycerin (Nitrostat), 0.4 MG SL PRN, (Reported) Scheduled PRN Acetaminophen/Codeine (T#4) (Tylenol With Codeine #4 Tablet*), 1 TAB ORAL Q6H PRN for For Pain, (Reported) Docusate Sodium* (Docusate Sodium*), 100 MG PO DAILY PRN for Constipation, ( Reported) Discontinued Medications Ferrous Sulfate* (Ferrous Sulfate*), 325 MG ORAL TID, (Reported) Discontinued Reason: Pt stopped taking med Fish Oil (Fish Oil 1,000 mg Capsule), 2,000 MG PO TID, (Reported) Discontinued Reason: Pt stopped taking med Flaxseed (Flaxseed Oil), 1,000 MG PO TID, (Reported) Discontinued Reason: Pt stopped taking med Hydrochlorothiazide* (Hydrochlorothiazide*), 12.5 MG ORAL DAILY, (Reported) Discontinued Reason: MD discontinued med Lisinopril* (Lisinopril*), 10 MG ORAL DAILY, (Reported) Discontinued Reason: MD discontinued med Tramadol/Acetaminophen (Ultracet Tablet), 1-2 EA ORAL BID-PRN, (Reported) Discontinued Reason: discontinued med Patient History Healthcare decision maker Resuscitation status Full Code Advanced Directive on File Past Medical/Surgical History Past Medical/Surgical History: (1) CAD (coronary artery disease) (2) Diabetes mellitus Review of Systems All Other Systems: negative except mentioned in HPI Physical Exam General Appearance: WD/WN, alert Lines, tubes and drains: peripheral, central line HEENT: normocephalic, atraumatic Neck: non-tender, normal alignment Respiratory/Chest: chest wall non-tender, no respiratory distress Cardiovascular/Chest: normal peripheral pulses, normal rate Abdomen: normal bowel sounds, soft Genitourinary/Rectal: normal genital exam Extremities: normal range of motion, non-tender Skin Exam: normal pigmentation Last 24 Hour Vital Signs Date Time Temp Pulse Resp B/P (MAP) Pulse Ox O2 Delivery O2 Flow Rate FiO2 04/13/19 12:00 97.9 68 17 127/79 (95) 94 04/13/19 09:24 97.7 04/13/19 09:00 Room Air 04/13/19 08:53 60 113/69 04/13/19 08:00 97.7 60 12 113/69 (84) 96 04/13/19 04:00 97.2 64 14 105/43 (63) 95 04/13/19 00:00 98.4 64 14 104/60 (75) 95 04/12/19 21:08 Room Air 04/12/19 20:20 99.4 70 16 126/70 99 Room Air 04/12/19 19:05 99.7 77 18 126/65 97 Room Air 04/12/19 17:51 82 20 150/64 100 Room Air 04/12/19 14:20 73 19 Room Air 04/12/19 14:20 100.4 73 19 172/82 96 Room Air 04/12/19 13:48 100.4 73 19 172/82 (112) 96 Room Air Intake and Output 04/12/19 04/13/19 19:00 07:00 Intake Total 635 ml Balance 635 ml Intake Oral 0 ml IV Total 635 ml Laboratory Tests Test 04/12/19 14:15 04/13/19 04:45 White Blood Count 9.1 K/UL (4.8-10.8) 6.6 K/UL (4.8-10.8) Red Blood Count 4.30 M/UL (4.20-5.40) 3.76 M/UL (4.20-5.40) L Hemoglobin 12.1 G/DL (12.0-16.0) 10.5 G/DL (12.0-16.0) L Hematocrit 38.7 % (37.0-47.0) 33.6 % (37.0-47.0) L Mean Corpuscular Volume 90 FL (80-99) 89 FL (80-99) Mean Corpuscular Hemoglobin 28.0 PG (27.0-31.0) 27.9 PG (27.0-31.0) Mean Corpuscular Hemoglobin Concent 31.1 G/DL (32.0-36.0) L 31.2 G/DL (32.0-36.0) L Red Cell Distribution Width 13.3 % (11.6-14.8) 13.5 % (11.6-14.8) Platelet Count 340 K/UL (150-450) 281 K/UL (150-450) Mean Platelet Volume 6.9 FL (6.5-10.1) 6.8 FL (6.5-10.1) Neutrophils (%) (Auto) 74.0 % (45.0-75.0) 61.2 % (45.0-75.0) Lymphocytes (%) (Auto) 17.6 % (20.0-45.0) L 23.3 % (20.0-45.0) Monocytes (%) (Auto) 5.0 % (1.0-10.0) 10.2 % (1.0-10.0) H Eosinophils (%) (Auto) 2.4 % (0.0-3.0) 4.2 % (0.0-3.0) H Basophils (%) (Auto) 1.1 % (0.0-2.0) 1.1 % (0.0-2.0) Urine Color Pale yellow Urine Appearance Clear Urine pH 6 (4.5-8.0) Urine Specific [place] 1.015 (1.005-1.035) Urine Protein 1+ (NEGATIVE) H Urine Glucose (UA) Negative (NEGATIVE) Urine Ketones Negative (NEGATIVE) Urine Blood Negative (NEGATIVE) Urine Nitrite Negative (NEGATIVE) Urine Bilirubin Negative (NEGATIVE) Urine Urobilinogen Normal MG/DL (0.0-1.0) Urine Leukocyte Esterase 2+ (NEGATIVE) H Urine RBC 0 /HPF (0 - 2) Urine WBC 2-4 /HPF (0 - 2) Urine Squamous Epithelial Cells Few /LPF (NONE/OCC) Urine Bacteria Few /HPF (NONE) Sodium Level 140 MMOL/L (136-145) 144 MMOL/L (136-145) Potassium Level 3.9 MMOL/L (3.5-5.1) 3.8 MMOL/L (3.5-5.1) Chloride Level 102 MMOL/L (98-107) 107 MMOL/L (98-107) Carbon Dioxide Level 29 MMOL/L (21-32) 28 MMOL/L (21-32) Anion Gap 9 mmol/L (5-15) 9 mmol/L (5-15) Blood Urea Nitrogen 16 mg/dL (7-18) 16 mg/dL (7-18) Creatinine 1.4 MG/DL (0.55-1.30) H 1.4 MG/DL (0.55-1.30) H Estimat Glomerular Filtration Rate mL/min (>60) mL/min (>60) Glucose Level 112 MG/DL (74-106) H 107 MG/DL (74-106) H Calcium Level 9.3 MG/DL (8.5-10.1) 9.0 MG/DL (8.5-10.1) Total Bilirubin 0.5 MG/DL (0.2-1.0) 0.6 MG/DL (0.2-1.0) Aspartate Amino Transf (AST/SGOT) 28 U/L (15-37) 25 U/L (15-37) Alanine Aminotransferase (ALT/SGPT) 19 U/L (12-78) 19 U/L (12-78) Alkaline Phosphatase 106 U/L (46-116) 86 U/L (46-116) Total Protein 7.4 G/DL (6.4-8.2) 6.4 G/DL (6.4-8.2) Albumin 3.7 G/DL (3.4-5.0) 2.9 G/DL (3.4-5.0) L Globulin 3.7 g/dL 3.5 g/dL Albumin/Globulin Ratio 1.0 (1.0-2.7) 0.8 (1.0-2.7) L Lipase 546 U/L (73-393) H 235 U/L (73-393) Prothrombin Time 10.6 SEC (9.30-11.50) Prothromb Time International Ratio 1.0 (0.9-1.1) Activated Partial Thromboplast Time 30 SEC (23-33) Hemoglobin A1c 7.0 % (4.3-6.0) H Amylase Level 102 U/L (25-115) Thyroid Stimulating Hormone (TSH) 1.566 uiU/mL (0.358-3.740) Height (Feet): 5 Height (Inches): 4.00 Weight (Pounds): 223 Medications Current Medications Medications (Trade) Dose Ordered Sig/[place]ec[place] Route PRN Reason Start Time Stop Time Status Last Admin Dose Admin Acetaminophen (Tylenol) 650 mg Q4H PRN ORAL fever 04/12/19 22:15 05/12/19 22:14 Allopurinol (Allopurinol) 300 mg DAILY ORAL 04/13/19 09:00 05/13/19 08:59 04/13/19 08:52 Atenolol (Tenormin) 25 mg Q12HR ORAL 04/13/19 09:00 05/13/19 08:59 04/13/19 08:53 Clopidogrel Bisulfate (Plavix) 75 mg DAILY ORAL 04/13/19 09:00 05/13/19 08:59 04/13/19 08:52 Dextrose (Dextrose 50%) 25 ml Q30M PRN IV Hypoglycemia 04/12/19 22:15 05/12/19 22:14 Diphenhydramine HCl (Benadryl) 25 mg Q6H PRN ORAL Itching/Pruritis 04/12/19 22:15 05/12/19 22:14 Heparin Sodium (Porcine) (Heparin 5000 units/ml) 5,000 units EVERY 12 HOURS SUBQ 04/13/19 09:00 05/13/19 08:59 Insulin Aspart (NovoLOG) BEFORE MEALS AND HS SUBQ 04/13/19 06:30 05/13/19 06:29 Morphine Sulfate (Morphine Sulfate) 2 mg Q4H PRN IVP severe Pain (Pain Scale 7-10) 6/24/19 22:15 04/19/19 22:14 04/13/19 08:54 Nitroglycerin (Ntg) 0.4 mg Q5M X 3 DOSES PRN SL Prn Chest Pain 04/12/19 22:15 05/12/19 22:14 Ondansetron HCl (Zofran) 4 mg Q6H PRN IVP Nausea & Vomiting 04/12/19 22:15 05/12/19 22:14 Piperacillin Sod/ Tazobactam Sod 3.375 gm/Sodium Chloride 110 ml @ 220 mls/hr Q8H IVPB 04/13/19 09:00 04/20/19 08:59 04/13/19 08:56 Polyethylene Glycol (Miralax) 17 gm HSPRN PRN ORAL Constipation 04/12/19 22:15 05/12/19 22:14 Sodium Chloride 1,000 ml @ 50 mls/hr Q20H IV 04/12/19 22:05 05/12/19 22:04 04/12/19 23:12 Temazepam (Restoril) 15 mg HSPRN PRN ORAL Insomnia 04/12/19 22:15 04/19/19 22:14 Assessment/Plan Problem List: (1) Diverticulitis ICD Codes: K57.92 - Diverticulitis of intestine, part unspecified, without perforation or abscess without bleeding SNOMED: 265620345 (2) Chronic renal insufficiency ICD Codes: N18.9 - Chronic kidney disease, unspecified SNOMED: 599137060 (3) CAD (coronary artery disease) ICD Codes: I25.10 - Atherosclerotic heart disease of [place] coronary artery without angina pectoris SNOMED: 93385651 (4) UTI (urinary tract infection) ICD Codes: N39.0 - Urinary tract infection, site not specified SNOMED: 95075857 (5) Diabetes mellitus ICD Codes: E11.9 - Type 2 diabetes mellitus without complications SNOMED: 38059350 (6) Atrophic kidney ICD Codes: N26.1 - Atrophy of kidney (terminal) SNOMED: 493799581 Assessment/Plan: NPO iv fluids renal studies sliding scale diabetic diet GI evaluation symptomatic treatment dvt prophylaxis. Stefanie Hollingsworth MD Apr 13, 2019 13:38
--- NOTE | 2019-04-13 13:59 | Consultation ---
History of Present Illness General Date patient seen: Apr 13, 2019 Chief Complaint: Abdominal Pain Present Illness HPI 73 y/o F with hx of DM, HTN, CAD s/p CABG presented to ED on 04/12 with lower abd pain for 3 days, dysuria. Pain is describeda s 02/26, dull, non radiating. CT abd/p in ED showed acute diverticulitis. Denied f/c, n/v, CP, SOB. Allergies: Coded Allergies: Cultivated Oat Pollen (Verified Allergy, Mild, 03/01/13) IODINE (Verified Allergy, Mild, 03/01/13) Medication History Scheduled Allopurinol* (Zyloprim*), 300 MG ORAL DAILY, (Reported) Atenolol* (Tenormin*), 25 MG ORAL Q12HR, (Reported) Atorvastatin (Lipitor), 80 MG ORAL BEDTIME, (Reported) Clopidogrel Bisulfate* (Plavix*), 75 MG ORAL DAILY, (Reported) Isosorbide Mononitrate (Isosorbide Mononitrate Er), 60 MG PO DAILY, (Reported) Metformin Hcl* (Metformin Hcl*), 500 MG ORAL TWICE A DAY, (Reported) Nitroglycerin (Nitrostat), 0.4 MG SL PRN, (Reported) Scheduled PRN Acetaminophen/Codeine (T#4) (Tylenol With Codeine #4 Tablet*), 1 TAB ORAL Q6H PRN for For Pain, (Reported) Docusate Sodium* (Docusate Sodium*), 100 MG PO DAILY PRN for Constipation, ( Reported) Discontinued Medications Ferrous Sulfate* (Ferrous Sulfate*), 325 MG ORAL TID, (Reported) Discontinued Reason: Pt stopped taking med Fish Oil (Fish Oil 1,000 mg Capsule), 2,000 MG PO TID, (Reported) Discontinued Reason: Pt stopped taking med Flaxseed (Flaxseed Oil), 1,000 MG PO TID, (Reported) Discontinued Reason: Pt stopped taking med Hydrochlorothiazide* (Hydrochlorothiazide*), 12.5 MG ORAL DAILY, (Reported) Discontinued Reason: MD discontinued med Lisinopril* (Lisinopril*), 10 MG ORAL DAILY, (Reported) Discontinued Reason: MD discontinued med Tramadol/Acetaminophen (Ultracet Tablet), 1-2 EA ORAL BID-PRN, (Reported) Discontinued Reason: MD discontinued med Patient History Healthcare decision maker Resuscitation status Full Code Advanced Directive on File Patient History Narrative Pmhx: as above Shx: Denies: smoking, alcohol use, drug use Fhx: non contributory Review of Systems All Other Systems: negative except mentioned in HPI Physical Exam Physical Exam Narrative General appearance: alert, cooperative, no distress, appears stated age Head: Normocephalic, without obvious abnormality, atraumatic Eyes: conjunctivae/corneas clear. PERRL, EOM's intact. Fundi benign Throat: Lips, mucosa, and tongue normal. Teeth and gums normal Neck: supple, symmetrical, trachea midline, no adenopathy, thyroid: not enlarged, symmetric, no tenderness/mass/nodules, no carotid bruit and no JVD Lungs: clear to auscultation bilaterally Heart: regular rate and rhythm, S1, S2 normal, no murmur, click, rub or gallop Abdomen: soft, non-tender. Bowel sounds normal. No masses, no organomegaly Extremities: extremities normal, atraumatic, no cyanosis or edema Pulses: 2+ and symmetric Skin: Skin color, texture, turgor normal. No rashes or lesions Neurologic: Grossly normal Last 24 Hour Vital Signs Date Time Temp Pulse Resp B/P (MAP) Pulse Ox O2 Delivery O2 Flow Rate FiO2 04/13/19 12:00 97.9 68 17 127/79 (95) 94 04/13/19 09:24 97.7 04/13/19 09:00 Room Air 04/13/19 08:53 60 113/69 04/13/19 08:00 97.7 60 12 113/69 (84) 96 04/13/19 04:00 97.2 64 14 105/43 (63) 95 04/13/19 00:00 98.4 64 14 104/60 (75) 95 04/12/19 21:08 Room Air 04/12/19 20:20 99.4 70 16 126/70 99 Room Air 04/12/19 19:05 99.7 77 18 126/65 97 Room Air 04/12/19 17:51 82 20 150/64 100 Room Air 04/12/19 14:20 73 19 Room Air 04/12/19 14:20 100.4 73 19 172/82 96 Room Air Intake and Output 04/12/19 04/13/19 19:00 07:00 Intake Total 635 ml Balance 635 ml Intake Oral 0 ml IV Total 635 ml Laboratory Tests Test 04/12/19 14:15 04/13/19 04:45 White Blood Count 9.1 K/UL (4.8-10.8) 6.6 K/UL (4.8-10.8) Red Blood Count 4.30 M/UL (4.20-5.40) 3.76 M/UL (4.20-5.40) L Hemoglobin 12.1 G/DL (12.0-16.0) 10.5 G/DL (12.0-16.0) L Hematocrit 38.7 % (37.0-47.0) 33.6 % (37.0-47.0) L Mean Corpuscular Volume 90 FL (80-99) 89 FL (80-99) Mean Corpuscular Hemoglobin 28.0 PG (27.0-31.0) 27.9 PG (27.0-31.0) Mean Corpuscular Hemoglobin Concent 31.1 G/DL (32.0-36.0) L 31.2 G/DL (32.0-36.0) L Red Cell Distribution Width 13.3 % (11.6-14.8) 13.5 % (11.6-14.8) Platelet Count 340 K/UL (150-450) 281 K/UL (150-450) Mean Platelet Volume 6.9 FL (6.5-10.1) 6.8 FL (6.5-10.1) Neutrophils (%) (Auto) 74.0 % (45.0-75.0) 61.2 % (45.0-75.0) Lymphocytes (%) (Auto) 17.6 % (20.0-45.0) L 23.3 % (20.0-45.0) Monocytes (%) (Auto) 5.0 % (1.0-10.0) 10.2 % (1.0-10.0) H Eosinophils (%) (Auto) 2.4 % (0.0-3.0) 4.2 % (0.0-3.0) H Basophils (%) (Auto) 1.1 % (0.0-2.0) 1.1 % (0.0-2.0) Urine Color Pale yellow Urine Appearance Clear Urine pH 6 (4.5-8.0) Urine Specific [place] 1.015 (1.005-1.035) Urine Protein 1+ (NEGATIVE) H Urine Glucose (UA) Negative (NEGATIVE) Urine Ketones Negative (NEGATIVE) Urine Blood Negative (NEGATIVE) Urine Nitrite Negative (NEGATIVE) Urine Bilirubin Negative (NEGATIVE) Urine Urobilinogen Normal MG/DL (0.0-1.0) Urine Leukocyte Esterase 2+ (NEGATIVE) H Urine RBC 0 /HPF (0 - 2) Urine WBC 2-4 /HPF (0 - 2) Urine Squamous Epithelial Cells Few /LPF (NONE/OCC) Urine Bacteria Few /HPF (NONE) Sodium Level 140 MMOL/L (136-145) 144 MMOL/L (136-145) Potassium Level 3.9 MMOL/L (3.5-5.1) 3.8 MMOL/L (3.5-5.1) Chloride Level 102 MMOL/L (98-107) 107 MMOL/L (98-107) Carbon Dioxide Level 29 MMOL/L (21-32) 28 MMOL/L (21-32) Anion Gap 9 mmol/L (5-15) 9 mmol/L (5-15) Blood Urea Nitrogen 16 mg/dL (7-18) 16 mg/dL (7-18) Creatinine 1.4 MG/DL (0.55-1.30) H 1.4 MG/DL (0.55-1.30) H Estimat Glomerular Filtration Rate mL/min (>60) mL/min (>60) Glucose Level 112 MG/DL (74-106) H 107 MG/DL (74-106) H Calcium Level 9.3 MG/DL (8.5-10.1) 9.0 MG/DL (8.5-10.1) Total Bilirubin 0.5 MG/DL (0.2-1.0) 0.6 MG/DL (0.2-1.0) Aspartate Amino Transf (AST/SGOT) 28 U/L (15-37) 25 U/L (15-37) Alanine Aminotransferase (ALT/SGPT) 19 U/L (12-78) 19 U/L (12-78) Alkaline Phosphatase 106 U/L (46-116) 86 U/L (46-116) Total Protein 7.4 G/DL (6.4-8.2) 6.4 G/DL (6.4-8.2) Albumin 3.7 G/DL (3.4-5.0) 2.9 G/DL (3.4-5.0) L Globulin 3.7 g/dL 3.5 g/dL Albumin/Globulin Ratio 1.0 (1.0-2.7) 0.8 (1.0-2.7) L Lipase 546 U/L (73-393) H 235 U/L (73-393) Prothrombin Time 10.6 SEC (9.30-11.50) Prothromb Time International Ratio 1.0 (0.9-1.1) Activated Partial Thromboplast Time 30 SEC (23-33) Hemoglobin A1c 7.0 % (4.3-6.0) H Amylase Level 102 U/L (25-115) Thyroid Stimulating Hormone (TSH) 1.566 uiU/mL (0.358-3.740) Height (Feet): 5 Height (Inches): 4.00 Weight (Pounds): 223 Medications Current Medications Medications (Trade) Dose Ordered Sig/Cecilio Route PRN Reason Start Time Stop Time Status Last Admin Dose Admin Acetaminophen (Tylenol) 650 mg Q4H PRN ORAL fever 04/12/19 22:15 05/12/19 22:14 Allopurinol (Allopurinol) 300 mg DAILY ORAL 04/13/19 09:00 05/13/19 08:59 04/13/19 08:52 Atenolol (Tenormin) 25 mg Q12HR ORAL 04/13/19 09:00 05/13/19 08:59 04/13/19 08:53 Clopidogrel Bisulfate (Plavix) 75 mg DAILY ORAL 04/13/19 09:00 05/13/19 08:59 04/13/19 08:52 Dextrose (Dextrose 50%) 25 ml Q30M PRN IV Hypoglycemia 04/12/19 22:15 05/12/19 22:14 Dextrose (Dextrose 50%) 50 ml Q30M PRN IV hypoglycemia 04/13/19 13:45 05/13/19 13:44 Diphenhydramine HCl (Benadryl) 25 mg Q6H PRN ORAL Itching/Pruritis 04/12/19 22:15 05/12/19 22:14 Heparin Sodium (Porcine) (Heparin 5000 units/ml) 5,000 units EVERY 12 HOURS SUBQ 04/13/19 09:00 05/13/19 08:59 Insulin Aspart (NovoLOG) BEFORE MEALS AND HS SUBQ 04/13/19 16:30 05/13/19 16:29 Morphine Sulfate (Morphine Sulfate) 2 mg Q4H PRN IVP severe Pain (Pain Scale 7-10) 04/12/19 22:15 04/19/19 22:14 04/13/19 08:54 Nitroglycerin (Ntg) 0.4 mg Q5M X 3 DOSES PRN SL Prn Chest Pain 04/12/19 22:15 05/12/19 22:14 Ondansetron HCl (Zofran) 4 mg Q6H PRN IVP Nausea & Vomiting 04/12/19 22:15 05/12/19 22:14 Piperacillin Sod/ Tazobactam Sod 3.375 gm/Sodium Chloride 110 ml @ 220 mls/hr Q8H IVPB 04/13/19 09:00 04/20/19 08:59 04/13/19 08:56 Polyethylene Glycol (Miralax) 17 gm HSPRN PRN ORAL Constipation 04/12/19 22:15 05/12/19 22:14 Sodium Chloride 1,000 ml @ 50 mls/hr Q20H IV 04/12/19 22:05 05/12/19 22:04 04/12/19 23:12 Temazepam (Restoril) 15 mg HSPRN PRN ORAL Insomnia 04/12/19 22:15 04/19/19 22:14 Assessment/Plan Assessment/Plan: Abx: Zosyn 04/12- Cipro x1 04/12 flagyl x1 04/12 Assessment: Acute sigmoid diverticulitis -CT abd/p: Acute diverticulitis involving the sigmoid: In the left lower quadrant abdomen. No abscess. Uterine fibroids. Atrophic right kidney likely nonfunctional. Small umbilical hernia containing fat. Atherosclerotic vascular disease. Suggestion of a small left renal cyst. Posterior basilar scarring of the lungs with bronchiectasis. Low grade fevers No leukocytosis -u/a neg DM HTN CAD s/p CABG Plan: -Switch Zosyn #2/7-10 to Ceftriaxone and flagyl for acute diverticultis -expect switching to PO abx upon discharge -f/u cx -Monitor CBC/CMP, temperatures Thank you for this consultation. Will continue to follow along with you. Discussed with SARAH. Yelena Jacobs M.D. Apr 13, 2019 13:59
[2019-04-13 15:55] VITALS: BP 148/72
--- NOTE | 2019-04-13 16:15 | History and Physical Report ---
DATE OF ADMISSION: 04/12/2019 TIME SEEN: 11 a.m. CONSULTANTS: 1. Stefanie Hollingsworth M.D. 2. Rory Bryant M.D. 3. Cachorro Dunlap M.D. 4. Shawn Zuniga M.D. CHIEF COMPLAINT: Abdominal pain and dysuria. BRIEF HISTORY: This is a 73-year-old female, who lives at home, presents with 5 days increasing abdominal pain, pain with urination, came to [place] [facility], diagnosed with diverticulosis, UTI, and being admitted to medical floor for further treatment. Currently, calm, in bed, complained scar on chest tender, abdominal pain, no complaint. REVIEW OF SYSTEMS: No chest pain. No shortness of breath. No nausea, vomiting, or diarrhea. PAST MEDICAL HISTORY: Hypertension, diabetes, kidney disease. PAST SURGICAL HISTORY: CABG. MEDICATIONS: Allopurinol, atenolol, Zosyn, insulin, Tylenol, morphine, temazepam. ALLERGIES: Iodine. SOCIAL HISTORY: No smoking. No alcohol. No intravenous drug use. FAMILY HISTORY: Noncontributory. PHYSICAL EXAMINATION: GENERAL: Calm in bed, oriented x3, no acute distress. VITAL SIGNS: Temperature is 97 degrees, pulse 60, respiratory rate 12, blood pressure 113/69. CARDIOVASCULAR: No murmurs. LUNGS: Distant and clear. ABDOMEN: Bowel sounds positive. Nontender and nondistended EXTREMITIES: No cyanosis, or edema. NEUROLOGIC: The patient moves all extremities, slightly weak. Central between breasts keloid about 1 inch x 3 inch. LABORATORY AND DIAGNOSTIC DATA: Hemoglobin and hematocrit 10/33, otherwise CBC is normal. BMP shows creatinine 1.4, glucose 107, albumin 2.9. INR is 1.0 and PTT is 30. Urinalysis show 2+ leukocyte esterase. ASSESSMENT: 1. Diverticulitis. 2. UTI. 3. Abdominal pain. 4. Dysuria. 5. Anemia. 6. Hypertension. 7. Diabetes. 8. Kidney disease . PLAN: 1. Antibiotics per Infectious Diseases. 2. Blood pressure, blood sugar, pain control. 3. Dietary followup. 4. CBC and BMP in the morning. Zane Payne D.O. DR: Seymour JOB#: [id number] CC:
[2019-04-13] MEDS ORDERED: cefTRIAXone 1 GM in D5W 55 ML IVPB SCH (18:00)
[2019-04-13] MEDS: metroNIDAZOLE 500mg tab ORAL SCH (18:07)
[2019-04-13] MEDS: Docusate 100mg cap ORAL SCH (18:38)
--- NOTE | 2019-04-13 19:06 | NUR ---
HAND-OFF: Report given to SARAH Wiley.
--- NOTE | 2019-04-13 19:10 | NUR ---
NURSE NOTES: RECEIVED PT FROM SARAH STREET. PT IS AWAKE, AAOX4, ON ROOM AIR, DENIES PAIN AND SOB. IV ON LEFT AC 20G AND RIGHT HAND 24G IS INTACT AND PATENT, CURRENTLY RUNNING NS AT 50ML/HR. BED IS LOCKED AT THE LOWEST POSITION, BED ALARM ACTIVE, SIDE RAILS UP X2, AND CALL LIGHT IS WITHIN REACH. WILL CONTINUE TO MONITOR.
[2019-04-13 20:00] VITALS: BP 112/41
[2019-04-14] VITALS: BP 112/48
[2019-04-14 04:00] VITALS: BP 154/58
[2019-04-14 06:28] LABS: BASOPHILS % (AUTO) 0.9 % (0.0-2.0); EOSINOPHILS % (AUTO) 5.5 % (0.0-3.0); HEMATOCRIT 34.9 % (37.0-47.0); MEAN CORPUSCULAR VOLUME 90 FL (80-99); MONOCYTES % (AUTO) 9.5 % (1.0-10.0); NEUTROPHILS % (AUTO) 65.2 % (45.0-75.0); PLATELET COUNT 274 K/UL (150-450); RED BLOOD COUNT 3.88 M/UL (4.20-5.40); RED CELL DISTRIBUTION WIDTH 13.5 % (11.6-14.8); WHITE BLOOD COUNT 5.7 K/UL (4.8-10.8)
[2019-04-14] MEDS: NovoLOG Insulin Flexpen SUBQ SCH ×3 (06:30→17:07)
[2019-04-14 06:47] LABS: ANION GAP 9 mmol/L (5-15); BLOOD UREA NITROGEN 19 mg/dL (7-18); CARBON DIOXIDE 26 MMOL/L (21-32); CHLORIDE 109 MMOL/L (98-107); CREATININE 1.3 MG/DL (0.55-1.30); SODIUM 144 MMOL/L (136-145)
[2019-04-14] MEDS: metroNIDAZOLE 500mg tab ORAL SCH ×2 (07:10→14:00)
--- NOTE | 2019-04-14 07:58 | NUR ---
HAND-OFF: Report given to SARAH HINDS.
[2019-04-14 08:00] VITALS: BP 119/58
--- NOTE | 2019-04-14 08:07 | NUR ---
NURSE NOTES: received report from Inez,RN. patient in bed. alert. oriented. verbally responsive. no respiratory distress noted. no c/o pain at this time. skin intact. IV RH 24g intact. bed in the lowest position . call light within reach. will provide plan of care
[2019-04-14] MEDS: Docusate 100mg cap ORAL SCH (08:46)
[2019-04-14] MEDS: Heparin 5000 units/ml inj SUBQ SCH (08:47)
--- NOTE | 2019-04-14 09:49 | General Progress Note ---
Assessment/Plan Problem List: (1) Diverticulitis ICD Codes: K57.92 - Diverticulitis of intestine, part unspecified, without perforation or abscess without bleeding SNOMED: [id number] Assessment/Plan: abx pain control advance to full liquid diet needs out patient colonoscopy in 8 weeks Subjective ROS Limited/Unobtainable: Yes Allergies: Coded Allergies: Cultivated Oat Pollen (Verified Allergy, Mild, 03/01/13) IODINE (Verified Allergy, Mild, 03/01/13) Objective Last 24 Hour Vital Signs Date Time Temp Pulse Resp B/P (MAP) Pulse Ox O2 Delivery O2 Flow Rate FiO2 04/14/19 08:47 65 119/58 04/14/19 08:00 97.9 65 20 119/58 (78) 97 04/14/19 04:00 97.7 76 18 154/58 (90) 99 04/14/19 00:00 97.8 65 18 112/48 (69) 96 04/13/19 21:00 68 112/41 04/13/19 21:00 Room Air 04/13/19 20:00 98.6 68 18 112/41 (64) 96 04/13/19 15:55 98.3 62 18 148/72 (97) 96 04/13/19 12:00 97.9 68 17 127/79 (95) 94 Intake and Output 04/13/19 04/14/19 18:59 06:59 Intake Total 560 ml 650 ml Balance 560 ml 650 ml Intake Oral 240 ml IV Total 320 ml 650 ml # Voids 3 3 Laboratory Tests 04/14/19 05:30: White Blood Count 5.7, Red Blood Count 3.88L, Hemoglobin 11.0L, Hematocrit 34.9L , Mean Corpuscular Volume 90, Mean Corpuscular Hemoglobin 28.4, Mean Corpuscular Hemoglobin Concent 31.6L, Red Cell Distribution Width 13.5, Platelet Count 274, Mean Platelet Volume 7.0, Neutrophils (%) (Auto) 65.2, Lymphocytes (%) (Auto) 19.0L, Monocytes (%) (Auto) 9.5, Eosinophils (%) (Auto) 5.5H, Basophils (%) (Auto) 0.9, Sodium Level 144, Potassium Level 4.0, Chloride Level 109H, Carbon Dioxide Level 26, Anion Gap 9, Blood Urea Nitrogen 19H, Creatinine 1.3, Estimat Glomerular Filtration Rate , Glucose Level 120H, Calcium Level 9.0 Height (Feet): 5 Height (Inches): 4.00 Weight (Pounds): 222 General Appearance: alert EENT: normal ENT inspection Neck: supple Cardiovascular: normal rate Respiratory/Chest: lungs clear Abdomen: normal bowel sounds, non tender, soft Extremities: non-tender Cachorro Dunlap MD Apr 14, 2019 09:49
--- NOTE | 2019-04-14 10:42 | Pulmonology Progress Note ---
Assessment/Plan Problems: (1) Diverticulitis (2) Chronic renal insufficiency (3) CAD (coronary artery disease) (4) UTI (urinary tract infection) (5) Diabetes mellitus (6) Atrophic kidney Assessment/Plan tolerating diet very well iv fluids renal studies sliding scale diabetic diet GI evaluation appreciated symptomatic treatment dvt prophylaxis. Subjective ROS Limited/Unobtainable: No Constitutional: Reports: no symptoms HEENT: Repors: no symptoms Allergies: Coded Allergies: Cultivated Oat Pollen (Verified Allergy, Mild, 03/01/13) IODINE (Verified Allergy, Mild, 03/01/13) Objective Last 24 Hour Vital Signs Date Time Temp Pulse Resp B/P (MAP) Pulse Ox O2 Delivery O2 Flow Rate FiO2 04/14/19 08:47 65 119/58 04/14/19 08:00 97.9 65 20 119/58 (78) 97 04/14/19 04:00 97.7 76 18 154/58 (90) 99 04/14/19 00:00 97.8 65 18 112/48 (69) 96 04/13/19 21:00 68 112/41 04/13/19 21:00 Room Air 04/13/19 20:00 98.6 68 18 112/41 (64) 96 04/13/19 15:55 98.3 62 18 148/72 (97) 96 04/13/19 12:00 97.9 68 17 127/79 (95) 94 Intake and Output 04/13/19 04/14/19 18:59 06:59 Intake Total 560 ml 650 ml Balance 560 ml 650 ml Intake Oral 240 ml IV Total 320 ml 650 ml # Voids 3 3 General Appearance: WD/WN HEENT: normocephalic, atraumatic Respiratory/Chest: chest wall non-tender, lungs clear Breasts: no masses Cardiovascular: normal rate Abdomen: normal bowel sounds, soft, non tender Genitourinary: normal external genitalia Extremities: no cyanosis Laboratory Tests 04/14/19 05:30: White Blood Count 5.7, Red Blood Count 3.88L, Hemoglobin 11.0L, Hematocrit 34.9L , Mean Corpuscular Volume 90, Mean Corpuscular Hemoglobin 28.4, Mean Corpuscular Hemoglobin Concent 31.6L, Red Cell Distribution Width 13.5, Platelet Count 274, Mean Platelet Volume 7.0, Neutrophils (%) (Auto) 65.2, Lymphocytes (%) (Auto) 19.0L, Monocytes (%) (Auto) 9.5, Eosinophils (%) (Auto) 5.5H, Basophils (%) (Auto) 0.9, Sodium Level 144, Potassium Level 4.0, Chloride Level 109H, Carbon Dioxide Level 26, Anion Gap 9, Blood Urea Nitrogen 19H, Creatinine 1.3, Estimat Glomerular Filtration Rate , Glucose Level 120H, Calcium Level 9.0 Current Medications Medications (Trade) Dose Ordered Sig/Cecilio Route PRN Reason Start Time Stop Time Status Last Admin Dose Admin Acetaminophen (Tylenol) 650 mg Q4H PRN ORAL fever 04/12/19 22:15 05/12/19 22:14 Allopurinol (Allopurinol) 300 mg DAILY ORAL 04/13/19 09:00 05/13/19 08:59 04/14/19 08:46 Atenolol (Tenormin) 25 mg Q12HR ORAL 04/13/19 09:00 05/13/19 08:59 04/14/19 08:47 Ceftriaxone Sodium 1 gm/ Dextrose 55 ml @ 110 mls/hr Q24H IVPB 04/13/19 18:00 04/20/19 17:59 04/13/19 17:59 Clopidogrel Bisulfate (Plavix) 75 mg DAILY ORAL 04/13/19 09:00 05/13/19 08:59 04/14/19 08:46 Dextrose (Dextrose 50%) 25 ml Q30M PRN IV Hypoglycemia 04/12/19 22:15 05/12/19 22:14 Dextrose (Dextrose 50%) 50 ml Q30M PRN IV hypoglycemia 04/13/19 13:45 05/13/19 13:44 Diphenhydramine HCl (Benadryl) 25 mg Q6H PRN ORAL Itching/Pruritis 04/12/19 22:15 05/12/19 22:14 Docusate Sodium (Colace) 100 mg TWICE A DAY ORAL 04/13/19 18:00 05/13/19 17:59 04/14/19 08:46 Heparin Sodium (Porcine) (Heparin 5000 units/ml) 5,000 units EVERY 12 HOURS SUBQ 04/13/19 09:00 05/13/19 08:59 Insulin Aspart (NovoLOG) BEFORE MEALS AND HS SUBQ 04/13/19 16:30 05/13/19 16:29 Metronidazole (Flagyl) 500 mg Q8HR ORAL 04/13/19 18:00 04/20/19 17:59 04/14/19 07:10 Morphine Sulfate (Morphine Sulfate) 2 mg Q4H PRN IVP severe Pain (Pain Scale 7-10) 04/12/19 22:15 04/19/19 22:14 04/13/19 08:54 Nitroglycerin (Ntg) 0.4 mg Q5M X 3 DOSES PRN SL Prn Chest Pain 04/12/19 22:15 05/12/19 22:14 Ondansetron HCl (Zofran) 4 mg Q6H PRN IVP Nausea & Vomiting 04/12/19 22:15 05/12/19 22:14 Polyethylene Glycol (Miralax) 17 gm HSPRN PRN ORAL Constipation 04/12/19 22:15 05/12/19 22:14 Sodium Chloride 1,000 ml @ 50 mls/hr Q20H IV 04/12/19 22:05 05/12/19 22:04 04/13/19 17:59 Temazepam (Restoril) 15 mg HSPRN PRN ORAL Insomnia 04/12/19 22:15 04/19/19 22:14 Stefanie Hollingsworth MD Apr 14, 2019 10:42
[2019-04-14 12:00] VITALS: BP 131/86
--- NOTE | 2019-04-14 13:51 | Surgery Progress Note ---
Surgery Progress Note Subjective Symptoms: improved, voiding well, passing flatus, pain decreased Objective Last 24 Hour Vital Signs Date Time Temp Pulse Resp B/P (MAP) Pulse Ox O2 Delivery O2 Flow Rate FiO2 04/14/19 12:00 99.0 67 18 131/86 (101) 95 04/14/19 09:00 Room Air 04/14/19 08:47 65 119/58 04/14/19 08:00 97.9 65 20 119/58 (78) 97 04/14/19 04:00 97.7 76 18 154/58 (90) 99 04/14/19 00:00 97.8 65 18 112/48 (69) 96 04/13/19 21:00 68 112/41 04/13/19 21:00 Room Air 04/13/19 20:00 98.6 68 18 112/41 (64) 96 04/13/19 15:55 98.3 62 18 148/72 (97) 96 I&O Intake and Output 04/13/19 04/14/19 19:00 07:00 Intake Total 560 ml 650 ml Balance 560 ml 650 ml Intake Oral 240 ml IV Total 320 ml 650 ml # Voids 3 3 Cardiovascular: RSR Respiratory: clear Abdomen: soft, non-tender, present bowel sounds, non-distended Extremities: no edema, no tenderness, no cyanosis Laboratory Tests Test 04/14/19 05:30 White Blood Count 5.7 K/UL (4.8-10.8) Red Blood Count 3.88 M/UL (4.20-5.40) L Hemoglobin 11.0 G/DL (12.0-16.0) L Hematocrit 34.9 % (37.0-47.0) L Mean Corpuscular Volume 90 FL (80-99) Mean Corpuscular Hemoglobin 28.4 PG (27.0-31.0) Mean Corpuscular Hemoglobin Concent 31.6 G/DL (32.0-36.0) L Red Cell Distribution Width 13.5 % (11.6-14.8) Platelet Count 274 K/UL (150-450) Mean Platelet Volume 7.0 FL (6.5-10.1) Neutrophils (%) (Auto) 65.2 % (45.0-75.0) Lymphocytes (%) (Auto) 19.0 % (20.0-45.0) L Monocytes (%) (Auto) 9.5 % (1.0-10.0) Eosinophils (%) (Auto) 5.5 % (0.0-3.0) H Basophils (%) (Auto) 0.9 % (0.0-2.0) Sodium Level 144 MMOL/L (136-145) Potassium Level 4.0 MMOL/L (3.5-5.1) Chloride Level 109 MMOL/L (98-107) H Carbon Dioxide Level 26 MMOL/L (21-32) Anion Gap 9 mmol/L (5-15) Blood Urea Nitrogen 19 mg/dL (7-18) H Creatinine 1.3 MG/DL (0.55-1.30) Estimat Glomerular Filtration Rate mL/min (>60) Glucose Level 120 MG/DL (74-106) H Calcium Level 9.0 MG/DL (8.5-10.1) Plan Problems: (1) Keloid scar of skin Assessment & Plan: keloid in sternal prior CABG incision patient prone to keloids discussed with patient can consider plastic surgery outpatient follow up high risk for developing another keloid as well given hx and location no acute intervention planned thank you (2) Diverticulitis Assessment & Plan: 73F with abdominal pain. CT with acute diverticulitis. afebrile, HD stable, labs okay Acute diverticulitis involving the sigmoid: In the left lower quadrant abdomen. No abscess. Uterine fibroids. Atrophic right kidney likely nonfunctional. Small umbilical hernia containing fat Atherosclerotic vascular disease. Suggestion of a small left renal cyst. Posterior basilar scarring of the lungs with bronchiectasis. exam benign today okay for diet cont abx will follow with exams. thank you (3) UTI (urinary tract infection) Shawn Zuniga Apr 14, 2019 13:51
--- NOTE | 2019-04-14 13:59 | NUR ---
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
--- NOTE | 2019-04-14 14:14 | NUR ---
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
--- NOTE | 2019-04-14 14:21 | NUR ---
*-* INSURANCE *-* ALL CLINICALS AND REVIEWS HAVE BEEN FAXED TO: AL NO TOOL GRINDING TECHNICIAN ASSIGNED AT THIS TIME. PLEASE FAX THE REVIEW/ CLINICAL P- [phone] F- [phone]....REVIEW/CLINICAL
--- NOTE | 2019-04-14 14:26 | General Progress Note ---
Assessment/Plan Problem List: (1) Chronic renal insufficiency ICD Codes: N18.9 - Chronic kidney disease, unspecified SNOMED: 383404358 (2) Diverticulitis ICD Codes: K57.92 - Diverticulitis of intestine, part unspecified, without perforation or abscess without bleeding SNOMED: 181537411 (3) UTI (urinary tract infection) ICD Codes: N39.0 - Urinary tract infection, site not specified SNOMED: 70387029 (4) Keloid scar of skin ICD Codes: L91.0 - Hypertrophic scar SNOMED: 89379862 (5) Diabetes mellitus ICD Codes: E11.9 - Type 2 diabetes mellitus without complications SNOMED: 73190693 Status: stable, progressing Assessment/Plan: abx diet f/u cbc bmp am dc plan Subjective Constitutional: Reports: weakness Allergies: Coded Allergies: Cultivated Oat Pollen (Verified Allergy, Mild, 03/01/13) IODINE (Verified Allergy, Mild, 03/01/13) All Systems: reviewed and negative except above Subjective ate ok Objective Last 24 Hour Vital Signs Date Time Temp Pulse Resp B/P (MAP) Pulse Ox O2 Delivery O2 Flow Rate FiO2 04/14/19 12:00 99.0 67 18 131/86 (101) 95 04/14/19 09:00 Room Air 04/14/19 08:47 65 119/58 04/14/19 08:00 97.9 65 20 119/58 (78) 97 04/14/19 04:00 97.7 76 18 154/58 (90) 99 04/14/19 00:00 97.8 65 18 112/48 (69) 96 04/13/19 21:00 68 112/41 04/13/19 21:00 Room Air 04/13/19 20:00 98.6 68 18 112/41 (64) 96 04/13/19 15:55 98.3 62 18 148/72 (97) 96 Intake and Output 04/13/19 04/14/19 19:00 07:00 Intake Total 560 ml 650 ml Balance 560 ml 650 ml Intake Oral 240 ml IV Total 320 ml 650 ml # Voids 3 3 Laboratory Tests 04/14/19 05:30: White Blood Count 5.7, Red Blood Count 3.88L, Hemoglobin 11.0L, Hematocrit 34.9L , Mean Corpuscular Volume 90, Mean Corpuscular Hemoglobin 28.4, Mean Corpuscular Hemoglobin Concent 31.6L, Red Cell Distribution Width 13.5, Platelet Count 274, Mean Platelet Volume 7.0, Neutrophils (%) (Auto) 65.2, Lymphocytes (%) (Auto) 19.0L, Monocytes (%) (Auto) 9.5, Eosinophils (%) (Auto) 5.5H, Basophils (%) (Auto) 0.9, Sodium Level 144, Potassium Level 4.0, Chloride Level 109H, Carbon Dioxide Level 26, Anion Gap 9, Blood Urea Nitrogen 19H, Creatinine 1.3, Estimat Glomerular Filtration Rate , Glucose Level 120H, Calcium Level 9.0 Height (Feet): 5 Height (Inches): 4.00 Weight (Pounds): 222 General Appearance: alert EENT: normal ENT inspection Neck: normal alignment Cardiovascular: normal peripheral pulses, normal rate, regular rhythm Respiratory/Chest: chest wall non-tender, lungs clear, normal breath sounds Abdomen: normal bowel sounds, non tender, soft Extremities: normal inspection Edema: no edema noted Arm (L), no edema noted Arm (R), no edema noted Leg (L), no edema noted Leg (R), no edema noted Pedal (L), no edema noted Pedal (R), no edema noted Generalized Neurologic: responsive, motor weakness Skin: normal pigmentation, warm/dry Zane Payne DO Apr 14, 2019 14:26
--- NOTE | 2019-04-14 15:15 | NUR ---
NURSE NOTES: CLEARED BY [facility], AWAITING RX FROM [facility]
[2019-04-14] MEDS ORDERED: METRONIDAZOLE500 MG ORAL (15:25)
[2019-04-14] MEDS ORDERED: CIPROFLOXACIN500 M2 ORAL (15:25)
--- NOTE | 2019-04-14 15:26 | NUR ---
NURSE NOTES: SPOKE W JACE GUZMAN (LUCILA HAD NO VOICEMAIL) PER JACE SHE WILL ASK NEPHEW TO [employer]IST PATIENT.
--- NOTE | 2019-04-14 15:54 | Infectious Diseases Prog Note ---
Assessment/Plan Assessment/Plan Abx: Zosyn 04/12- Cipro x1 04/12 flagyl x1 04/12 Assessment: Acute sigmoid diverticulitis -CT abd/p: Acute diverticulitis involving the sigmoid: In the left lower quadrant abdomen. No abscess. Uterine fibroids. Atrophic right kidney likely nonfunctional. Small umbilical hernia containing fat. Atherosclerotic vascular disease. Suggestion of a small left renal cyst. Posterior basilar scarring of the lungs with bronchiectasis. Low grade fevers No leukocytosis -u/a neg DM HTN CAD s/p CABG Plan: -On Ceftriaxone and flagyl #2 (abx d #12/24-) for acute diverticultis -Ok to discharge on PO Cipro 500mg bid and Flagyl 500mg tid -f/u cx -Monitor CBC/CMP, temperatures Thank you for this consultation. Will continue to follow along with you. Discussed with RN. Subjective Allergies: Coded Allergies: Cultivated Oat Pollen (Verified Allergy, Mild, 03/01/13) IODINE (Verified Allergy, Mild, 03/01/13) All Systems: reviewed and negative except above Subjective afebrile in >36hrs no leukocytosis for discharge Objective Vital Signs Last 24 Hour Vital Signs Date Time Temp Pulse Resp B/P (MAP) Pulse Ox O2 Delivery O2 Flow Rate FiO2 04/14/19 12:00 99.0 67 18 131/86 (101) 95 04/14/19 09:00 Room Air 04/14/19 08:47 65 119/58 04/14/19 08:00 97.9 65 20 119/58 (78) 97 04/14/19 04:00 97.7 76 18 154/58 (90) 99 04/14/19 00:00 97.8 65 18 112/48 (69) 96 04/13/19 21:00 68 112/41 04/13/19 21:00 Room Air 04/13/19 20:00 98.6 68 18 112/41 (64) 96 04/13/19 15:55 98.3 62 18 148/72 (97) 96 Height (Feet): 5 Height (Inches): 4.00 Weight (Pounds): 222 Laboratory Tests Test 04/14/19 05:30 White Blood Count 5.7 K/UL (4.8-10.8) Red Blood Count 3.88 M/UL (4.20-5.40) L Hemoglobin 11.0 G/DL (12.0-16.0) L Hematocrit 34.9 % (37.0-47.0) L Mean Corpuscular Volume 90 FL (80-99) Mean Corpuscular Hemoglobin 28.4 PG (27.0-31.0) Mean Corpuscular Hemoglobin Concent 31.6 G/DL (32.0-36.0) L Red Cell Distribution Width 13.5 % (11.6-14.8) Platelet Count 274 K/UL (150-450) Mean Platelet Volume 7.0 FL (6.5-10.1) Neutrophils (%) (Auto) 65.2 % (45.0-75.0) Lymphocytes (%) (Auto) 19.0 % (20.0-45.0) L Monocytes (%) (Auto) 9.5 % (1.0-10.0) Eosinophils (%) (Auto) 5.5 % (0.0-3.0) H Basophils (%) (Auto) 0.9 % (0.0-2.0) Sodium Level 144 MMOL/L (136-145) Potassium Level 4.0 MMOL/L (3.5-5.1) Chloride Level 109 MMOL/L (98-107) H Carbon Dioxide Level 26 MMOL/L (21-32) Anion Gap 9 mmol/L (5-15) Blood Urea Nitrogen 19 mg/dL (7-18) H Creatinine 1.3 MG/DL (0.55-1.30) Estimat Glomerular Filtration Rate mL/min (>60) Glucose Level 120 MG/DL (74-106) H Calcium Level 9.0 MG/DL (8.5-10.1) Current Medications Medications (Trade) Dose Ordered Sig/Cecilio Route PRN Reason Start Time Stop Time Status Last Admin Dose Admin Acetaminophen (Tylenol) 650 mg Q4H PRN ORAL fever 04/12/19 22:15 05/12/19 22:14 Allopurinol (Allopurinol) 300 mg DAILY ORAL 04/13/19 09:00 05/13/19 08:59 04/14/19 08:46 Atenolol (Tenormin) 25 mg Q12HR ORAL 04/13/19 09:00 05/13/19 08:59 04/14/19 08:47 Ceftriaxone Sodium 1 gm/ Dextrose 55 ml @ 110 mls/hr Q24H IVPB 04/13/19 18:00 04/20/19 17:59 04/13/19 17:59 Clopidogrel Bisulfate (Plavix) 75 mg DAILY ORAL 04/13/19 09:00 05/13/19 08:59 04/14/19 08:46 Dextrose (Dextrose 50%) 25 ml Q30M PRN IV Hypoglycemia 04/12/19 22:15 05/12/19 22:14 Dextrose (Dextrose 50%) 50 ml Q30M PRN IV hypoglycemia 04/13/19 13:45 05/13/19 13:44 Diphenhydramine HCl (Benadryl) 25 mg Q6H PRN ORAL Itching/Pruritis 04/12/19 22:15 05/12/19 22:14 Docusate Sodium (Colace) 100 mg TWICE A DAY ORAL 04/13/19 18:00 05/13/19 17:59 04/14/19 08:46 Heparin Sodium (Porcine) (Heparin 5000 units/ml) 5,000 units EVERY 12 HOURS SUBQ 04/13/19 09:00 05/13/19 08:59 Insulin Aspart (NovoLOG) BEFORE MEALS AND HS SUBQ 04/13/19 16:30 05/13/19 16:29 Metronidazole (Flagyl) 500 mg Q8HR ORAL 04/13/19 18:00 04/20/19 17:59 04/14/19 14:00 Morphine Sulfate (Morphine Sulfate) 2 mg Q4H PRN IVP severe Pain (Pain Scale 7-10) 04/12/19 22:15 04/19/19 22:14 04/13/19 08:54 Nitroglycerin (Ntg) 0.4 mg Q5M X 3 DOSES PRN SL Prn Chest Pain 04/12/19 22:15 05/12/19 22:14 Ondansetron HCl (Zofran) 4 mg Q6H PRN IVP Nausea & Vomiting 04/12/19 22:15 05/12/19 22:14 Polyethylene Glycol (Miralax) 17 gm HSPRN PRN ORAL Constipation 04/12/19 22:15 05/12/19 22:14 Sodium Chloride 1,000 ml @ 50 mls/hr Q20H IV 04/12/19 22:05 05/12/19 22:04 04/13/19 17:59 Temazepam (Restoril) 15 mg HSPRN PRN ORAL Insomnia 04/12/19 22:15 04/19/19 22:14 Yelena Jacobs M.D. Apr 14, 2019 15:54
[2019-04-14 16:00] VITALS: BP 117/70
--- NOTE | 2019-04-14 18:13 | NUR ---
NURSE NOTES: patient discharged to home herself with fair condition. no respiratory distress noted. no c/o pain. Provide dc packet and new prescription. checked counted belongings with patient and obtained sign. removed IV and ID band, all needs attended.
--- NOTE | 2019-04-15 08:07 | Discharge Summary ---
Discharge Summary Discharge Summary _ DATE OF ADMISSION: 04/12/2019 DATE OF DISCHARGE: 04/14/2019 DISCHARGED BY: Dr. Zane Payne CONSULTANTS: Dr. Yelena Dunlap [facility] COURSE: Patient is a 73-year-old female, who lives at home, presented to ED due to complaints of lower abdominal discomfort for 5 days. Pain was described to be burning in urination, 5 out of 10, dull and nonradiating. She denied any fever or chills. Denied any nausea or vomiting. Denied chest pain or shortness of breath. She has medical history significant for diabetes mellitus and hypertension. On evaluation at ED, the pressure was elevated to 172/82, pulse rate 73, temperature 100.4 F. Blood work was unremarkable. Urinalysis showed +2 leukocyte esterase, 2-4 urine WBC, negative nitrite. CT of the abdomen and pelvis showed acute colitis in the sigmoid colon. She was started empirically on ciprofloxacin and metronidazole. She was then admitted for evaluation of diverticulitis and UTI. She was placed on n.p.o. She was started on IV hydration. She was started on Zosyn. ID was consulted and antibiotic was switched to ceftriaxone and Flagyl. Diet was advanced. She was given pain management. Surgical evaluation was done. She complained of pain from keloid from prior CABG. She was recommended can consider plastic surgery outpatient follow-up and was discussed high risk for developing another keloid given history and location. Fever resolved. There was no leukocytosis. She was tolerating diet well. She was cleared for discharged home to continue antibiotics as outpatient. FINAL DIAGNOSES: Acute diverticulitis Possible UTI Diabetes mellitus Hypertension Coronary disease status post Keloid scar skin Chronic renal insufficiency DISPOSITION: Patient was discharged home. DISCHARGE MEDICATIONS: Refer to Discharge Medication List. DISCHARGE INSTRUCTIONS: Follow-up in a week. I have been assigned to complete a discharge summary on this account, I was not involved with the patient's management.--VAZQUEZ Corral Jacqueline Robles NP Apr 15, 2019 08:07
--- NOTE | 2019-04-15 12:37 | Diagnostic Imaging Report ---
APPROVED REPORT CPT Code: 77594 Present Symptoms Comments: Swelling BILATERAL: Imaging reveals a patent deep venous system bilaterally. There is no evidence of thrombus within the common femoral, superficial femoral, popliteal or tibial segments. The greater saphenous veins are within normal limits. Doppler indicates normal spontaneous flow within these segments.
--- NOTE | 2019-04-16 09:14 | NUR ---
*-* INSURANCE *-* ALL CLINICALS AND REVIEWS HAVE BEEN RE-FAXED TO: [facility] AUTH# [id number] F: [phone]
== END 2019-04-14 18:21 | disposition home or self-care (01) | DRG 392 ==
LOC: EMR 14:05 → EDBEDREQ 18:12 → 4E 18:39 → EMR 20:20 → EDBEDREQ 20:59 → 4E 04-13 15:47
DX: K57.92 Diverticulitis of intestine, part unspecified, without perforation or abscess without bleeding (principal); N39.0 Urinary tract infection, site not specified; I10 Essential (primary) hypertension; E11.9 Type 2 diabetes mellitus without complications; I12.9 Hypertensive chronic kidney disease with stage 1 through stage 4 chronic kidney disease, or unspecified chronic kidney disease; E11.22 Type 2 diabetes mellitus with diabetic chronic kidney disease; N18.9 Chronic kidney disease, unspecified; I25.10 Atherosclerotic heart disease of native coronary artery without angina pectoris; Z95.1 Presence of aortocoronary bypass graft; Z88.8 Allergy status to other drugs, medicaments and biological substances; L91.0 Hypertrophic scar; L90.5 Scar conditions and fibrosis of skin; N26.1 Atrophy of kidney (terminal)
CPT/HCPCS: 36415; 74177; 76700; 80048; 80053; 81003; 82150; 83036; 83690; 84443; 85025; 85610; 85730; 93970; 96365; 96368; 96375; 99285; J1815